=== PATIENT | female | born 1985 | race Caucasian/White ===

== ENCOUNTER 2023-04-05 13:35 | Emergency (ER) | payer SELFPAY ==
[~2023-04-05] VITALS: Ht 152.4 cm; Wt 75.0 kg
[2023-04-05 13:45] VITALS: BP 114/52; PULSE 85; RESP 18; TEMP 98.6; O2SAT 99
[2023-04-05 14:26] LABS: BASOPHILS % 0.4 % (0.0-2.0); EOSINOPHILS % 5.7 % (0.0-5.0); HEMOGLOBIN. 10.7 g/dL (12.0-16.0); LYMPHOCYTES % 24.8 % (20.0-50.0); MEAN CORPUSCULAR HEMOGLOBIN 27.7 pg (28.0-32.0); MEAN PLATELET VOLUME 7.8 fl (7.4-10.4); MONOCYTES % 6.3 % (2.0-8.0); NEUTROPHILS % 62.8 % (40.0-76.0); PLATELET 392 x1000/uL (130-400); RED BLOOD CELL COUNT 3.86 mill/uL (4.2-5.4); RED CELL DISTRIBUTION WIDTH 15.1 % (11.6-14.6)
[2023-04-05 14:29] LABS: CHLORIDE 106 mEq/L (98-107)
[2023-04-05 14:40] LABS: B-HCG QUANTITATIVE < 1 mIU/mL (<3)
== END 2023-04-05 17:31 | disposition left against medical advice (07) ==
LOC: ER 13:35
DX: Z53.21 Procedure and treatment not carried out due to patient leaving prior to being seen by health care provider (principal)
CPT/HCPCS: 36415; 76830; 76856; 80053; 81025; 84702; 85025; 86850; 86900; 99281; 99284